=== PATIENT | male | born 1985 | race Caucasian/White ===

== ENCOUNTER 2016-11-24 12:37 | Emergency (ER) | payer OTHER ==
[2016-11-24] MEDS ORDERED: ASPIRIN 81 MG TABLET, CHEWABLE PO ONE (15:00)
[2016-11-24] MEDS ORDERED: PREDNISONE 20 MG TABLET PO ONE (15:01)
[2016-11-24] MEDS ORDERED: IPRATROPIUM/ALBUTEROL 0.5-2.5 MG/3 ML AMPUL NEB ONE (15:01)
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
[2016-11-24 16:17] LABS: ABSOLUTE EOSINOPHILS # (AUTO) 0.4 10^3/uL (0.0-0.6); ABSOLUTE MONOCYTES (AUTO) 0.3 10^3/uL (0.1-1.4); ABSOLUTE NEUT (AUTO) 4.6 10^3/uL (1.7-8.2); BASOPHILS % (AUTO) 0.4 % (0-2); EOSINOPHILS % (AUTO) 6.4 % (0-6); HEMATOCRIT 42.5 % (37.9-51.0); HEMOGLOBIN 14.6 g/dL (13.5-17.0); HGB HCT DIFFERENCE 1.3; LYMPHOCYTES % (AUTO) 16.1 % (13-45); MEAN CORPUSCULAR HEMOGLOBIN 30.2 pg (27.0-33.4); MEAN CORPUSCULAR HGB CONC 34.5 g/dL (32.0-36.0); MEAN CORPUSCULAR VOLUME 88 fl (80-97); RED BLOOD COUNT 4.85 10^6/uL (4.35-5.55); RED CELL DISTRIBUTION WIDTH 12.7 % (11.5-14.0); SEGMENTED NEUTROPHILS % (AUTO) 72.1 % (42-78); WHITE BLOOD COUNT 6.4 10^3/uL (4.0-10.5)
[2016-11-24 16:44] LABS: ALANINE AMINOTRANSFERASE 33 U/L (21-72); ALBUMIN 4.6 g/dL (3.5-5.0); ALKALINE PHOSPHATASE 62 U/L (38-126); ANION GAP 13 (5-19); ASPARTATE AMINO TRANSFERASE 24 U/L (17-59); BILIRUBIN,TOTAL 0.8 mg/dL (0.2-1.3); BLOOD UREA NITROGEN 15 mg/dL (7-20); CALCIUM 9.5 mg/dL (8.4-10.2); CARBON DIOXIDE 21 mmol/L (22-30); CHLORIDE 107 mmol/L (98-107); CREATINE KINASE 184 U/L (55-170); CREATININE RESULT 0.93 mg/dL (0.52-1.25); GLUCOSE 87 mg/dL (75-110); SODIUM 140.8 mmol/L (137-145); TOTAL PROTEIN 7.3 g/dL (6.3-8.2)
[2016-11-24] MEDS ORDERED: ALBUTEROL SULFATE 0.083% NEB 2.5 MG/3 ML AMPUL NEB ONE (16:51)
[2016-11-24 16:56] LABS: CREATINE KINASE MB 0.81 ng/mL (<4.55)
[2016-11-24 16:57] LABS: TROPONIN I < 0.012 ng/mL
[2016-11-24 18:45] VITALS: BP 118/67
--- NOTE | 2016-11-24 23:12 | EKG REPORT ---
SEVERITY:- BORDERLINE ECG - SINUS RHYTHM PROBABLE LEFT ATRIAL ABNORMALITY : Confirmed by: Valeria Millan 24-Nov-2016 23:11:05
== END 2016-11-24 18:45 | disposition home or self-care (01) ==
LOC: ER 12:37
DX: J45.909 Unspecified asthma, uncomplicated (principal); R06.00 Dyspnea, unspecified; R07.89 Other chest pain; R53.1 Weakness; I10 Essential (primary) hypertension; Z87.820 Personal history of traumatic brain injury
CPT/HCPCS: 93005; 94640 ×2; 99285; 36415; 82553; 82550; 85025; 80053; 84484; 71020; 93010; J7512; J7620

== ENCOUNTER → 2016-12-17 | Outpatient (CLI) | payer OTHER ==
[2016-12-17 14:56] LABS: ABSOLUTE EOSINOPHILS # (AUTO) 0.3 10^3/uL (0.0-0.6); ABSOLUTE MONOCYTES (AUTO) 0.3 10^3/uL (0.1-1.4); ABSOLUTE NEUT (AUTO) 2.7 10^3/uL (1.7-8.2); BASOPHILS % (AUTO) 0.6 % (0-2); EOSINOPHILS % (AUTO) 6.6 % (0-6); HEMATOCRIT 43.7 % (37.9-51.0); HEMOGLOBIN 14.6 g/dL (13.5-17.0); HGB HCT DIFFERENCE 0.1; MEAN CORPUSCULAR HEMOGLOBIN 29.5 pg (27.0-33.4); MEAN CORPUSCULAR HGB CONC 33.4 g/dL (32.0-36.0); MEAN CORPUSCULAR VOLUME 89 fl (80-97); MONOCYTES % (AUTO) 5.9 % (3-13); RED BLOOD COUNT 4.94 10^6/uL (4.35-5.55); RED CELL DISTRIBUTION WIDTH 13.1 % (11.5-14.0); SEGMENTED NEUTROPHILS % (AUTO) 62.9 % (42-78); WHITE BLOOD COUNT 4.3 10^3/uL (4.0-10.5)
[2016-12-17 15:08] LABS: APPEARANCE,URINE CLEAR; BILIRUBIN,URINE NEGATIVE (NEGATIVE); GLUCOSE, URINE NEGATIVE (NEGATIVE); KETONES,URINE NEGATIVE (NEGATIVE); LEUKOCYTE ESTERASE,URINE NEGATIVE (NEGATIVE); NITRITE,URINE NEGATIVE (NEGATIVE); PROTEIN,URINE NEGATIVE (NEGATIVE); URINE SPECIFIC GRAVITY 1.012; UROBILINOGEN,URINE NEGATIVE mg/dL (<2.0)
[2016-12-17 15:11] LABS: PROTHROMBIN TIME 14.3 SEC (11.4-15.4)
[2016-12-17 15:12] LABS: PARTIAL THROMBOPLASTIN TIME 29.5 SEC (23.5-35.8)
== END ==
LOC: OD 13:15
PROVIDERS: ATTEND Pain Medicine Interventional Pain Medicine
DX: Z79.1 Long term (current) use of non-steroidal anti-inflammatories (NSAID) (principal)
CPT/HCPCS: 36415; 81001; 85025; 85610; 85730

== ENCOUNTER 2017-02-08 06:03 | Day surgery (SDC) | payer MEDICARE, OTHER ==
[2017-02-02 09:17] LABS: APPEARANCE,URINE CLEAR; BILIRUBIN,URINE NEGATIVE (NEGATIVE); GLUCOSE, URINE NEGATIVE (NEGATIVE); KETONES,URINE NEGATIVE (NEGATIVE); LEUKOCYTE ESTERASE,URINE NEGATIVE (NEGATIVE); NITRITE,URINE NEGATIVE (NEGATIVE); PROTEIN,URINE NEGATIVE (NEGATIVE); URINE SPECIFIC GRAVITY 1.004; UROBILINOGEN,URINE NEGATIVE mg/dL (<2.0)
[2017-02-02 09:19] LABS: PROTHROMBIN TIME 13.9 SEC (11.4-15.4)
[2017-02-02 09:20] LABS: PARTIAL THROMBOPLASTIN TIME 29.5 SEC (23.5-35.8)
[2017-02-02 09:21] LABS: HEMATOCRIT 42.2 % (37.9-51.0); HEMOGLOBIN 14.7 g/dL (13.5-17.0); HGB HCT DIFFERENCE 1.9; MEAN CORPUSCULAR HEMOGLOBIN 30.1 pg (27.0-33.4); MEAN CORPUSCULAR HGB CONC 34.9 g/dL (32.0-36.0); MEAN CORPUSCULAR VOLUME 86 fl (80-97); RED BLOOD COUNT 4.89 10^6/uL (4.35-5.55); RED CELL DISTRIBUTION WIDTH 13.4 % (11.5-14.0); WHITE BLOOD COUNT 3.6 10^3/uL (4.0-10.5)
[2017-02-02 09:54] LABS: ANION GAP 11 (5-19); BLOOD UREA NITROGEN 11 mg/dL (7-20); CALCIUM 10.5 mg/dL (8.4-10.2); CARBON DIOXIDE 28 mmol/L (22-30); CHLORIDE 102 mmol/L (98-107); CREATININE RESULT 1.06 mg/dL (0.52-1.25); GLUCOSE 85 mg/dL (75-110); POTASSIUM 3.7 mmol/L (3.6-5.0); SODIUM 141.4 mmol/L (137-145)
[~2017-02-08 06:03] MED LIST: CEFAZOLIN 1 GM/D5W RTU 1 GM/50 ML RTUPB IV PRN; LACTATED RINGERS 1000 ML IV PRN; LIDOCAINE 0.5% INJ-PF (5 MG/ML) 50 ML SDV SUBCUT PRN
[2017-02-08] MEDS ORDERED: LIDOCAINE 1% INJ-PF (10 MG/ML) 30 ML SDV ONE ×2 (06:46→09:02)
[2017-02-08] MEDS ORDERED: SODIUM BICARBONATE 8.4% INJ 50 MEQ/50 ML DISP.SYRIN ONE (06:46)
[2017-02-08] MEDS ORDERED: BUPIVACAINE HCL 0.25% /EPINEPHRINE INJ/PF 30 ML SDV ONE (06:47)
[2017-02-08] MEDS ORDERED: MIDAZOLAM 2 MG/2 ML INJ ONE (06:48)
[2017-02-08] MEDS ORDERED: FENTANYL CITRATE INJ/PF 100 MCG/2 ML AMPUL ONE ×2 (06:48→10:14)
[2017-02-08] MEDS ORDERED: PROPOFOL INJ 200 MG/20 ML VIAL IV ONE (06:49)
[2017-02-08] MEDS ORDERED: MORPHINE SULFATE 10 MG/ML INJ IV PRN (09:19)
[2017-02-08] MEDS ORDERED: MEPERIDINE HCL/PF INJ 25 MG/1 ML DISP.SYRIN IV PRN (09:19)
[2017-02-08] MEDS ORDERED: DIPHENHYDRAMINE HCL 50 MG/ML VIAL IV PRN (09:19)
[2017-02-08] MEDS ORDERED: PROMETHAZINE HCL INJ 25 MG/1 ML VIAL IV PRN (09:19)
[2017-02-08] MEDS ORDERED: FENTANYL CITRATE INJ/PF 100 MCG/2 ML AMPUL IV PRN ×3 (09:19)
[2017-02-08] MEDS ORDERED: ONDANSETRON HCL INJ/PF 4 MG/2 ML SDV IV PRN (09:19)
[2017-02-08] MEDS ORDERED: CEFAZOLIN INJ 1 GM VIAL ONE (10:07)
[2017-02-08] MEDS ORDERED: OXYCODONE-ACETAMINOPHEN 5-325 MG TABLET PO PRN (10:32)
[2017-02-08] MEDS ORDERED: ALBUTEROL SULFATE HFA (90 MCG/PUFF) 200 PUFF/8.5 GM MDI IH ONE (10:36)
[2017-02-08] MEDS ORDERED: ALBUTEROL SULFATE 0.083% NEB 2.5 MG/3 ML AMPUL NEB ONE (10:37)
--- NOTE | 2017-02-08 10:53 | OPERATIVE REPORT E ---
Operative Report NAME: ROSA MARIA DANIELLE : 1985 AGE: 31Y DATE OF SURGERY: 02/08/2017 ROOM: PREOPERATIVE DIAGNOSIS: Lumbar radiculopathy. POSTOPERATIVE DIAGNOSIS: Lumbar radiculopathy. PROCEDURE PERFORMED: Implantation of spinal cord stimulator system from [employer] with dual octrode leads and Precision Montage MRI compatible system. PRIMARY SURGEON: Jeremías Baptiste M.D. RN IMAGING: Dr. Noé Lan ANESTHESIA: Local with sedation. PREOPERATIVE ANTIBIOTICS: One gram Ancef given prior to incision. INTRAVENOUS FLUIDS: One liter balanced crystalloid solution. ESTIMATED BLOOD LOSS: 5 mL. INDICATIONS: The patient is a 31-year-old male with ongoing history of lumbar radiculopathy. He underwent successful trial of spinal cord stimulation with excellent results and opted to proceed with permanent implantation. Risks and benefits were discussed with the patient at length. Risks include, but are not limited to, bleeding, bruising, infection, injury to nerves, arteries, veins, loss of bowel or bladder function, paralysis, and potentially even . The patient expressed understanding and agreed to proceed. OPERATIVE DETAIL: The patient was accompanied by Anesthesia to the operative suite where he was placed in prone position. All pressure points were protected and padded. Standard A lines and monitors were applied. One gram of Ancef was given perioperatively and sedation was administered. The patient was marked preoperatively over the left buttock as well as the midline from previous trial implant site. The patient was prepped and draped in a sterile fashion using chlorhexidine gluconate solution, Ioban drape and a universal drape. The planned incision site was marked slightly left of midline after confirmation with AP fluoroscopy. The skin was anesthetized prior to incision using 1% buffered lidocaine and deeper tissues infiltrated with 0.25% bupivacaine with 1:100,000 epinephrine. Incision was made with a #15 blade scalpel. Blunt and Bovie dissection was subsequently performed to attain adequate hemostasis and expose the prevertebral fascia. Once this was attained, a 3.5-inch spinal needle was advanced along the planned tract for Tuohy needle insertion to the T12-L1 interspace. The tract was anesthetized with 1% buffered lidocaine. Subsequently a 17-gauge Tuohy provided by the [employer] kit was advanced under intermittent AP and lateral fluoroscopic guidance and access to the epidural space was gained using loss of resistance to normal saline. Once loss of resistance was obtained, the octrode lead was advanced easily into the posterior epidural space and placement confirmed with lateral fluoroscopy. This procedure was performed in the exact same fashion and a left paramedian approach at the L1-L2 interspace. Once both leads were confirmed to be in the posterior epidural space they were advanced to the bottom of the T7 vertebral body. Final confirmation of lead placement was also performed in lateral fluoroscopic angulation. The patient at this point was awakened from anesthesia and testing was performed with the help of the [employer] statement services representative in the room. The patient had adequate stimulation at all painful areas. Subsequently he was allowed to resume sedation. An 0 Mersil[address] was used to place a pursestring suture around the needle and an additional stay suture was placed for anchoring purposes. The Tuohy needle was removed from over the lead under continuous fluoroscopic guidance to ensure no migration of the lead. Subsequently, the anchor provided by the [employer] kit was advanced over the lead. The pursestring suture was tied and then the anchor affixed to the pursestring suture as well as the stay suture. Again, lead placement was confirmed using AP fluoroscopic guidance. This was performed in the exact same fashion on the secondary lead. Once both leads were anchored in place, the site was copiously irrigated with dilute Betadine solution. Attention was then turned to the left buttock where the skin was anesthetized with buffered 1% lidocaine and subsequently 0.25% bupivacaine with 1:100,000 epinephrine. An incision was made using a #15 blade scalpel and blunt and Bovie dissection allowed for creation of a pocket in the left buttock. This was adequately sized for battery and implantable pulse generator placement. Once the pocket was created the deeper tissues were anesthetized with a 3.5-inch spinal needle and 1% lidocaine for tunneling purposes. The leads were tunneled from the midline to the buttock pocket easily. Strain relief loops were placed behind the battery as well as in the midline and affixed with 3-0 Vicryl suture. Copious irrigation was also performed in the buttock pocket at this point. The leads were connected to the implantable pulse generator and impedances were checked using the [employer] statement services representative in the room and found to be appropriate. The battery was placed with appropriate labeling towards the out of the skin. Subsequently closure ensued with interrupted 3-0 Vicryl in both the midline and the buttock pocket. The buttock pocket was further closed of the skin with 4-0 running suture. The midline was closed with Dermabond glue and tape, and the buttock was also closed with Dermabond glue and tape. This was allowed to dry and the incision sites were dressed. The patient tolerated the procedure well and was accompanied to the PACU in stable condition. He will be seen in followup at [facility] tomorrow for wound check. DICTATING PHYSICIAN: JEREMÍAS BAPTISTE M.D. [id number] PHY#: [id number] ID: [id number] JOB#: [id number] ACCT: [id number] cc:JEREMÍAS BAPTISTE M.D. > MTDD
[2017-02-08 12:06] VITALS: BP 119/74
== END 2017-02-08 12:00 | disposition home or self-care (01) ==
LOC: OROUT 06:03
PROVIDERS: ATTEND Pain Medicine Interventional Pain Medicine
PROC: 00HU3MZ Insertion of Neurostimulator Lead into Spinal Canal, Percutaneous Approach (ICD-10-PCS; 2017-02-08)
PROC: 0JH70MZ Insertion of Stimulator Generator into Back Subcutaneous Tissue and Fascia, Open Approach (ICD-10-PCS; principal; 2017-02-08 08:00)
DX: M54.17 Radiculopathy, lumbosacral region (principal); J45.909 Unspecified asthma, uncomplicated; F43.10 Post-traumatic stress disorder, unspecified; Z79.51 Long term (current) use of inhaled steroids; Z79.899 Other long term (current) drug therapy; Z79.1 Long term (current) use of non-steroidal anti-inflammatories (NSAID)
CPT/HCPCS: 63650; 63685; C1778; C1820; 300; 36415; 72080; 80048; 81001; 85027; 85610; 85730; J0690; J2250; J2704; J3010; J3490

== ENCOUNTER 2017-03-13 11:54 | Inpatient (IN) | payer MEDICARE, OTHER ==
[2017-03-13] MEDS ORDERED: IPRATROPIUM/ALBUTEROL 0.5-2.5 MG/3 ML AMPUL NEB ONE ×2 (12:13→13:23)
[2017-03-13] MEDS ORDERED: METHYLPREDNISOLONE INJ 125 MG/2 ML SDV IV ONE (12:14)
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
[2017-03-13 12:39] LABS: ABSOLUTE EOSINOPHILS # (AUTO) 0.8 10^3/uL (0.0-0.6); ABSOLUTE MONOCYTES (AUTO) 0.5 10^3/uL (0.1-1.4); ABSOLUTE NEUT (AUTO) 3.2 10^3/uL (1.7-8.2); BASOPHILS % (AUTO) 0.7 % (0-2); EOSINOPHILS % (AUTO) 11.9 % (0-6); HEMATOCRIT 45.1 % (37.9-51.0); HEMOGLOBIN 15.8 g/dL (13.5-17.0); HGB HCT DIFFERENCE 2.3; LYMPHOCYTES % (AUTO) 30.7 % (13-45); MEAN CORPUSCULAR HEMOGLOBIN 30.2 pg (27.0-33.4); MEAN CORPUSCULAR VOLUME 86 fl (80-97); MONOCYTES % (AUTO) 7.2 % (3-13); RED BLOOD COUNT 5.22 10^6/uL (4.35-5.55); RED CELL DISTRIBUTION WIDTH 13.4 % (11.5-14.0); SEGMENTED NEUTROPHILS % (AUTO) 49.5 % (42-78); WHITE BLOOD COUNT 6.5 10^3/uL (4.0-10.5)
[2017-03-13 12:55] LABS: ALANINE AMINOTRANSFERASE 33 U/L (21-72); ALBUMIN 4.8 g/dL (3.5-5.0); ALKALINE PHOSPHATASE 65 U/L (38-126); ANION GAP 15 (5-19); ASPARTATE AMINO TRANSFERASE 30 U/L (17-59); BILIRUBIN,DIRECT 0.2 mg/dL (0.0-0.4); BILIRUBIN,TOTAL 1.1 mg/dL (0.2-1.3); BLOOD UREA NITROGEN 19 mg/dL (7-20); CALCIUM 10.1 mg/dL (8.4-10.2); CARBON DIOXIDE 23 mmol/L (22-30); CHLORIDE 103 mmol/L (98-107); CREATININE RESULT 1.22 mg/dL (0.52-1.25); GLUCOSE 76 mg/dL (75-110); POTASSIUM 4.7 mmol/L (3.6-5.0); SODIUM 141.4 mmol/L (137-145); TOTAL PROTEIN 7.9 g/dL (6.3-8.2)
[2017-03-13 13:02] LABS: ARTERIAL BLOOD BASE EXCESS 0.3 mmol/L; ARTERIAL BLOOD O2 SATURATION 96.7 % (94-98)
[2017-03-13 13:06] LABS: CREATINE KINASE MB 1.27 ng/mL (<4.55); TROPONIN I < 0.012 ng/mL
[2017-03-13 13:17] LABS: AMORPHOUS SEDIMENT,URINE TRACE /HPF; APPEARANCE,URINE CLEAR; BILIRUBIN,URINE NEGATIVE (NEGATIVE); GLUCOSE, URINE NEGATIVE (NEGATIVE); KETONES,URINE NEGATIVE (NEGATIVE); LEUKOCYTE ESTERASE,URINE NEGATIVE (NEGATIVE); NITRITE,URINE NEGATIVE (NEGATIVE); PROTEIN,URINE NEGATIVE (NEGATIVE); URINE SPECIFIC GRAVITY 1.006; UROBILINOGEN,URINE NEGATIVE mg/dL (<2.0)
[2017-03-13] MEDS ORDERED: MORPHINE SULFATE 10 MG/ML INJ IV ONE (14:21)
[2017-03-13] MEDS ORDERED: IPRATROPIUM/ALBUTEROL 0.5-2.5 MG/3 ML AMPUL NEB PRN ×2 (16:12→19:30)
[2017-03-13] MEDS ORDERED: IPRATROPIUM/ALBUTEROL 0.5-2.5 MG/3 ML AMPUL NEB SCH (16:15)
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
[2017-03-13] MEDS ORDERED: ENOXAPARIN SODIUM INJ 40 MG/0.4 ML DISP.SYRIN SUBCUT ONE (17:00)
[2017-03-13] MEDS: ACETAMINOPHEN 325 MG TABLET PO PRN ×2 (17:04→22:03)
--- NOTE | 2017-03-13 17:08 | EKG REPORT ---
SEVERITY:- ABNORMAL ECG - ATRIAL FLUTTER, A-RATE 340 : Confirmed by: Cyndi Jacob MD 13-Mar-2017 17:07:57
[2017-03-13] MEDS: MORPHINE SULFATE 10 MG/ML INJ IV PRN (18:49)
[2017-03-13] MEDS: IPRATROPIUM/ALBUTEROL 0.5-2.5 MG/3 ML AMPUL NEB SCH (21:05)
[2017-03-13] MEDS: METHYLPREDNISOLONE INJ 40 MG/1 ML SDV IV SCH (22:03)
[2017-03-14] MEDS: IPRATROPIUM/ALBUTEROL 0.5-2.5 MG/3 ML AMPUL NEB SCH ×4 (01:47→19:39)
[2017-03-14] MEDS: MORPHINE SULFATE 10 MG/ML INJ IV PRN ×4 (02:05→22:23)
[2017-03-14] MEDS: ENOXAPARIN SODIUM INJ 40 MG/0.4 ML DISP.SYRIN SUBCUT SCH (08:11)
[2017-03-14] MEDS: ACETAMINOPHEN 325 MG TABLET PO PRN (08:11)
[2017-03-14] MEDS: METHYLPREDNISOLONE INJ 40 MG/1 ML SDV IV SCH ×2 (10:07→21:33)
[2017-03-14] MEDS: FLUOXETINE HCL 20 MG CAPSULE PO SCH (10:07)
[2017-03-14] MEDS: TOPIRAMATE 100 MG TABLET PO SCH (10:07)
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
[2017-03-14] MEDS ORDERED: (PENDING PHARMACY ID) (Tapentadol Hydrochloride [Nucynta] 50 MG) PO SCH (11:45)
[2017-03-14] MEDS ORDERED: MELOXICAM 15 MG TABLET PO ONE (13:00)
[2017-03-14] MEDS ORDERED: METHOCARBAMOL 500 MG TABLET PO ONE (13:00)
[2017-03-14] MEDS: GABAPENTIN 300 MG CAPSULE PO SCH ×2 (14:03→21:33)
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
[2017-03-14] MEDS: METHOCARBAMOL 500 MG TABLET PO SCH (18:32)
[2017-03-15] MEDS: IPRATROPIUM/ALBUTEROL 0.5-2.5 MG/3 ML AMPUL NEB SCH ×4 (01:57→19:38)
[2017-03-15] MEDS: MORPHINE SULFATE 10 MG/ML INJ IV PRN ×2 (04:39→10:37)
[2017-03-15] MEDS: GABAPENTIN 300 MG CAPSULE PO SCH ×3 (05:39→21:37)
--- NOTE | 2017-03-15 07:41 | Physician Advisory Note ---
Physician Advisor ProgressNote .: Pursuant to the plan for [facility], I have reviewed the medical record for this patient. Physician Advisor Statement: Medicare pt requiring a 2nd MN in hospital for continued clinical needs for tx w /close monitoring for response should be made Inpt before the 2nd MN occurs. Pt appropriate for Inpt status. CK
[2017-03-15] MEDS: ACETAMINOPHEN 325 MG TABLET PO PRN ×2 (08:08→20:08)
[2017-03-15] MEDS: ENOXAPARIN SODIUM INJ 40 MG/0.4 ML DISP.SYRIN SUBCUT SCH (08:08)
[2017-03-15] MEDS: MELOXICAM 15 MG TABLET PO SCH (10:24)
[2017-03-15] MEDS: METHYLPREDNISOLONE INJ 40 MG/1 ML SDV IV SCH (10:24)
[2017-03-15] MEDS: TOPIRAMATE 100 MG TABLET PO SCH (10:26)
[2017-03-15] MEDS: METHOCARBAMOL 500 MG TABLET PO SCH ×2 (10:26→17:20)
[2017-03-15] MEDS: FLUOXETINE HCL 20 MG CAPSULE PO SCH (10:26)
--- NOTE | 2017-03-15 12:47 | PDOC PROGRESS REPORT ---
Subjective Progress Note for:: 03/15/17 Subjective:: Patient is still having is having a cough and wheezing He has no hypoxemia and no subjective severe shortness of breath He is alert and awake on the monitor is sinus rhythm without any arrhythmia Physical Exam Vital Signs: Temp Pulse Resp BP Pulse Ox 97.6 F 66 14 121/59 L 100 03/15/17 07:39 03/15/17 07:41 03/15/17 07:41 03/15/17 07:39 03/15/17 07:41 Intake & Output 03/14/17 03/15/17 03/16/17 00:59 00:59 00:59 Intake Total 355 1097 200 Output Total 300 2500 1100 Balance 55 1403 -900 Weight 68.04 kg 68.04 kg 68.04 kg General appearance: PRESENT: no acute distress Head exam: PRESENT: atraumatic, normocephalic Eye exam: PRESENT: conjunctiva pink, EOMI, PERRLA. ABSENT: scleral icterus Neck exam: ABSENT: carotid bruit, JVD, lymphadenopathy, thyromegaly Respiratory exam: PRESENT: wheezes - Scattered but bilaterally. ABSENT: rales, rhonchi Cardiovascular exam: PRESENT: RRR. ABSENT: diastolic murmur, rubs, systolic murmur Pulses: PRESENT: normal dorsalis pedis pul GI/Abdominal exam: PRESENT: normal bowel sounds, soft. ABSENT: distended, guarding, mass, organolmegaly, rebound, tenderness Neurological exam: PRESENT: alert, awake, oriented to person, oriented to place , oriented to time, oriented to situation, CN II-XII grossly intact. ABSENT: motor sensory deficit Psychiatric exam: PRESENT: anxious Results Impressions: Chest X-Ray 03/13/17 12:14 IMPRESSION: NO ACUTE RADIOGRAPHIC FINDING IN THE CHEST. Head CT 03/13/17 12:15 IMPRESSION: NORMAL BRAIN CT WITHOUT CONTRAST. Assessment & Plan - Diagnosis (1) Acute asthma exacerbation Is this a current diagnosis for this admission?: Yes (2) Chronic pain with drug dependence Is this a current diagnosis for this admission?: Yes (3) PTSD (post-traumatic stress disorder) Is this a current diagnosis for this admission?: Yes (4) Syncope Qualifiers: Syncope type: unspecified Qualified Code(s): R55 - Syncope and collapse Is this a current diagnosis for this admission?: Yes - Time Time Spent with patient: We will discontinue opiates at this time Changed IV to by mouth steroids Continue nebs Reevaluate in a.m. for discharge Time Spent with patient: 25-34 minutes
[2017-03-16] MEDS: IPRATROPIUM/ALBUTEROL 0.5-2.5 MG/3 ML AMPUL NEB SCH ×2 (02:11→08:25)
[2017-03-16] MEDS: ACETAMINOPHEN 325 MG TABLET PO PRN (05:28)
[2017-03-16] MEDS: GABAPENTIN 300 MG CAPSULE PO SCH (05:28)
[2017-03-16 08:07] VITALS: BP 117/81
[2017-03-16] MEDS: ENOXAPARIN SODIUM INJ 40 MG/0.4 ML DISP.SYRIN SUBCUT SCH (09:07)
[2017-03-16] MEDS: METHOCARBAMOL 500 MG TABLET PO SCH (09:07)
[2017-03-16] MEDS: TOPIRAMATE 100 MG TABLET PO SCH (09:08)
[2017-03-16] MEDS: MELOXICAM 15 MG TABLET PO SCH (09:08)
[2017-03-16] MEDS: FLUOXETINE HCL 20 MG CAPSULE PO SCH (09:08)
[2017-03-16] MEDS ORDERED: PREDNISONE 20 MG TABLET PO SCH (10:00)
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
== END 2017-03-16 13:38 | disposition home or self-care (01) | DRG 202 ==
LOC: ER 11:54 → EH 15:56 → UNDOADMOB 15:56 → EH 17:10 → 5 18:30 → EH 18:30 → INTOOBSV 03-15 10:22 → OBSVTOIN 03-15 10:22 → EH 03-15 10:22 → 5 03-15 10:22
PROVIDERS: ADMIT Hospitalist; ATTEND Hospitalist
PROC: 3E0F73Z Introduction of Anti-inflammatory into Respiratory Tract, Via Natural or Artificial Opening (ICD-10-PCS; principal; 2017-03-15)
DX: J45.901 Unspecified asthma with (acute) exacerbation (principal); G82.20 Paraplegia, unspecified; I10 Essential (primary) hypertension; F43.10 Post-traumatic stress disorder, unspecified; M54.17 Radiculopathy, lumbosacral region; G89.29 Other chronic pain; G43.909 Migraine, unspecified, not intractable, without status migrainosus; R55 Syncope and collapse; R41.2 Retrograde amnesia; T14.8 Other injury of unspecified body region; W40 Explosion of other materials; H53.149 Visual discomfort, unspecified; Z87.820 Personal history of traumatic brain injury; Z97.8 Presence of other specified devices; Z79.51 Long term (current) use of inhaled steroids; Z82.49 Family history of ischemic heart disease and other diseases of the circulatory system; Z80.3 Family history of malignant neoplasm of breast; Z79.1 Long term (current) use of non-steroidal anti-inflammatories (NSAID); Z79.899 Other long term (current) drug therapy; Z98.890 Other specified postprocedural states
CPT/HCPCS: 36415; 36600; 70450; 71010; 71275; 80053; 81001; 82553; 82803; 84484; 85025; 93005; 93010; 94640; 96372; 96374; 96375; 99285; G0378; J1650; J2270; J2920; J2930; J3490; J7512; J7620

== ENCOUNTER 2017-05-06 10:40 | Emergency (ER) | payer MEDICARE, OTHER ==
[2017-05-06 10:50] VITALS: BP 142/86
[2017-05-06] MEDS ORDERED: LORAZEPAM INJ 2 MG/1 ML VIAL IM ONE (11:10)
[2017-05-06] MEDS ORDERED: ONDANSETRON ODT 4 MG TAB (6 TAB/DSPK) PO PRN (11:10)
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
== END 2017-05-06 11:27 | disposition home or self-care (01) ==
LOC: ER 10:40
DX: F11.23 Opioid dependence with withdrawal (principal); R53.1 Weakness; R11.2 Nausea with vomiting, unspecified; M79.1 Myalgia; I10 Essential (primary) hypertension; Z87.820 Personal history of traumatic brain injury
CPT/HCPCS: 99283; 96372; J2060; A9270

== ENCOUNTER 2017-05-07 09:09 | Emergency (ER) | payer MEDICARE, OTHER ==
--- NOTE | 2017-05-07 09:18 | ER Document Report ---
ED GI/ - General Chief Complaint: Nausea/Vomiting Stated Complaint: VOMITING Time Seen by Provider: 05/07/17 09:18 Mode of Arrival: Ambulatory Information source: Patient Notes: 31 yo stopped his nucenta 200mg per day abruptly on his own 2 weeks ago. Past few days has irritability, insomnia, nausea, vomiting. Came to er last night, tx for withdrawal symptoms with ativan 0.5mg that is not working. Offered to treat pt with some opiate for weaning purposes, has appt. with [facility] on tuesday. He said no on 2 occasions to this during our conversation. Denies suicide or homocidal ideation. Offered to give him resources for detox, and IV/Medications for the nausea. TRAVEL OUTSIDE OF THE [place] IN LAST 30 DAYS: No - Related Data Allergies/Adverse Reactions: theophylline Allergy (Severe, Verified 05/07/17 09:15) n and v Past Medical History - General Information source: Patient - Social History Smoking Status: Current Every Day Smoker Frequency of alcohol use: None Drug Abuse: None Lives with: Spouse/Significant other Family History: CAD, Hypertension Patient has suicidal ideation: No Patient has homicidal ideation: No - Past Medical History Cardiac Medical History: Reports: Hx Hypertension - on meds Pulmonary Medical History: Reports: Hx Asthma - inhalers Neurological Medical History: Reports: Hx Migraine Psychiatric Medical History: Reports: Hx Depression, Hx Post Traumatic Stress Disorder Traumatic Medical History: Reports: Hx Traumatic Brain Injury Past Surgical History: Reports: Hx Appendectomy, Hx Orthopedic Surgery - Tail bone reconstruction, Other - Placement of a nerve stimulator 3 weeks ago. Spinal cord damage. - Immunizations Hx Diphtheria, Pertussis, Tetanus Vaccination: Yes Review of Systems - Review of Systems Constitutional: No symptoms reported EENT: No symptoms reported Cardiovascular: No symptoms reported Respiratory: No symptoms reported Gastrointestinal: See HPI Genitourinary: No symptoms reported Male Genitourinary: No symptoms reported Musculoskeletal: No symptoms reported Skin: No symptoms reported Hematologic/Lymphatic: No symptoms reported Neurological/Psychological: No symptoms reported Physical Exam - Vital signs Vitals: Temp Pulse Resp BP Pulse Ox 99.3 F 84 16 140/76 H 97 05/07/17 09:14 05/07/17 09:14 05/07/17 09:14 05/07/17 09:14 05/07/17 09:14 Interpretation: Normal - General General appearance: Appears well, Alert - HEENT Head: Normocephalic, Atraumatic Eyes: Normal Conjunctiva: Normal Pupils: PERRL Neck: Supple. No: Lymphadenopathy - Respiratory Respiratory status: No respiratory distress Chest status: Nontender Breath sounds: Normal Chest palpation: Normal - Cardiovascular Rhythm: Regular Heart sounds: Normal auscultation Murmur: No - Abdominal Inspection: Normal Distension: No distension Bowel sounds: Normal Tenderness: Nontender. No: Tender Organomegaly: No organomegaly - Back Back: Normal, Nontender - Extremities General upper extremity: Normal inspection, Nontender, Normal color, Normal ROM , Normal temperature General lower extremity: Normal inspection, Nontender, Normal color, Normal ROM , Normal temperature, Normal weight bearing. No: Krupa's sign - Neurological Neuro grossly intact: Yes Cognition: Normal Orientation: AAOx4 [place] Coma Scale Eye Opening: Spontaneous [place] Coma Scale Verbal: Oriented [place] Coma Scale Motor: Obeys Commands Nurys Coma Scale Total: 15 Speech: Normal Motor strength normal: LUE, RUE, LLE, RLE Sensory: Normal - Psychological Associated symptoms: Flat affect, Irritable - Skin Skin Temperature: Warm Skin Moisture: Dry Skin Color: Normal Skin irregularity: negative: Rash Course - Re-evaluation Re-evalutation: 05/07/17 11:01 dr. timmons visited the pt in room 21 and asked me to call [facility] o see if dehydrogenation operator head. 05/07/17 11:14 the reglan and benadryl resolved the nausea, Dr. Winter dehydrogenation operator head for [facility], message devorah ton his cell phone to return my call. Pt was given dilaudid 0.5mg and he feels much better, no skin crawling anymore. Will prescribe some opiate mediation and explain this to dr. winter when he calls me back. 05/07/17 11:21 Dr. Winter recommended 2 mg of hydromorphone twice a day Tuesday, Tuesday and 1 dose for Tuesday morning. - Vital Signs Vital signs: Temp Pulse Resp BP Pulse Ox 98.9 F 88 18 135/81 H 99 05/07/17 11:49 05/07/17 11:49 05/07/17 11:49 05/07/17 11:49 05/07/17 11:49 Discharge - Discharge Clinical Impression: irritability opiate withdrawal Nausea and vomiting Qualifiers: Vomiting type: unspecified Vomiting Intractability: non-intractable Qualified Code(s): R11.2 - Nausea with vomiting, unspecified Condition: Good Disposition: HOME, SELF-CARE Instructions: Intravenous (IV) Fluids ([facility]), Vomiting ([facility]), Reglan ([facility]), Use of Diphenhydramine, Oral Narcotic Medication ([facility]) Additional Instructions: I spoke with dr. winter, and he wants you to take hydromorphone (dilaudid 2mg ) twice a day until they see you tuesday as planned take over the counter benadryl with thte reglan for the nause to er if worse see [facility] on tuesday as planned Please complete the patient satisfaction survey if you get one, and return it.. If you do not receive a survey, then you can go to the [facility] website, [email or web address] and place your comments about your very good care. Thank you very much. It was a pleasure being your medical provider today. Prescriptions: Hydromorphone HCl [Dilaudid 2 mg Tablet] 2 mg PO BID #5 tablet Metoclopramide HCl [Reglan 10 mg Tablet] 1 tab PO QIDP PRN #25 tablet PRN Reason: Referrals: JAMARI GAMBOA MD [ACTIVE STAFF] - 05/09/17
[2017-05-07] MEDS ORDERED: DIPHENHYDRAMINE HCL 25 MG CAPSULE PO ONE (09:19)
[2017-05-07] MEDS ORDERED: METOCLOPRAMIDE HCL 10 MG TABLET PO ONE (09:19)
[2017-05-07] MEDS ORDERED: METOCLOPRAMIDE HCL INJ/PF 10 MG/2 ML SDV IV ONE (09:31)
[2017-05-07] MEDS ORDERED: DIPHENHYDRAMINE HCL 50 MG/ML VIAL IV ONE (09:31)
[2017-05-07] MEDS ORDERED: NORMAL SALINE 1000 ML 2,000 ML IV ONE (09:31)
[2017-05-07] MEDS ORDERED: HYDROMORPHONE HCL INJ/PF 2 MG/ML AMPULE IV ONE (11:04)
[2017-05-07 11:50] VITALS: BP 135/81
== END 2017-05-07 11:50 | disposition home or self-care (01) ==
LOC: ER 09:09
DX: R11.2 Nausea with vomiting, unspecified (principal); F17.200 Nicotine dependence, unspecified, uncomplicated; F11.23 Opioid dependence with withdrawal
CPT/HCPCS: 99284; 96374; 96375; J1200; J2765; J1170; J7030

== ENCOUNTER 2017-07-26 07:25 | Day surgery (SDC) | payer MEDICARE, OTHER ==
[2017-07-21 10:15] LABS: HEMATOCRIT 40.6 % (37.9-51.0); HEMOGLOBIN 14.3 g/dL (13.5-17.0); HGB HCT DIFFERENCE 2.3; MEAN CORPUSCULAR HEMOGLOBIN 30.4 pg (27.0-33.4); MEAN CORPUSCULAR HGB CONC 35.2 g/dL (32.0-36.0); MEAN CORPUSCULAR VOLUME 86 fl (80-97); RED CELL DISTRIBUTION WIDTH 13.4 % (11.5-14.0); WHITE BLOOD COUNT 4.3 10^3/uL (4.0-10.5)
--- NOTE | 2017-07-21 10:28 | RADIOLOGY REPORT (SQ) ---
EXAM DESCRIPTION: CHEST PA/LATERAL COMPLETED DATE/TIME: 07/21/2017 9:42 am REASON FOR STUDY: PRE-OP COMPARISON: 03/13/2017 EXAM PARAMETERS: NUMBER OF VIEWS: two views TECHNIQUE: Digital Frontal and Lateral radiographic views of the chest acquired. RADIATION DOSE: NA LIMITATIONS: none FINDINGS: LUNGS AND PLEURA: No opacities, masses or pneumothorax. No pleural effusion. MEDIASTINUM AND HILAR STRUCTURES: No masses or contour abnormalities. HEART AND VASCULAR STRUCTURES: Heart normal size. No evidence for failure. BONES: No acute findings. HARDWARE: Stimulator electrodes are present in the thoracic spine. OTHER: No other significant finding. IMPRESSION: NO SIGNIFICANT RADIOGRAPHIC FINDING IN THE CHEST. TECHNICAL DOCUMENTATION: JOB ID: [id number] [employer]- All Rights Reserved
[2017-07-21 10:30] LABS: APPEARANCE,URINE CLEAR; BILIRUBIN,URINE NEGATIVE (NEGATIVE); GLUCOSE, URINE NEGATIVE (NEGATIVE); KETONES,URINE NEGATIVE (NEGATIVE); LEUKOCYTE ESTERASE,URINE NEGATIVE (NEGATIVE); NITRITE,URINE NEGATIVE (NEGATIVE); PROTEIN,URINE NEGATIVE (NEGATIVE); URINE SPECIFIC GRAVITY 1.006; UROBILINOGEN,URINE NEGATIVE mg/dL (<2.0)
[2017-07-21 11:52] LABS: PARTIAL THROMBOPLASTIN TIME 29.7 SEC (23.5-35.8); PROTHROMBIN TIME 13.7 SEC (11.4-15.4)
--- NOTE | 2017-07-21 15:40 | EKG REPORT ---
SEVERITY:- NORMAL ECG - SINUS RHYTHM : Confirmed by: Valeria Millan 21-Jul-2017 15:39:17
[2017-07-26] MEDS ORDERED: LIDOCAINE 1% INJ-PF (10 MG/ML) 30 ML SDV ONE (08:09)
[2017-07-26] MEDS ORDERED: BUPIVACAINE HCL 0.5%-EPI 1:200000 INJ/PF 30 ML VIAL ONE (08:10)
[2017-07-26] MEDS ORDERED: FENTANYL CITRATE INJ/PF 100 MCG/2 ML AMPUL ONE ×2 (09:16→10:52)
[2017-07-26] MEDS ORDERED: MIDAZOLAM 2 MG/2 ML INJ ONE ×2 (09:16)
[2017-07-26] MEDS ORDERED: PROPOFOL INJ 200 MG/20 ML VIAL IV ONE (09:16)
[2017-07-26] MEDS ORDERED: FENTANYL CITRATE INJ/PF 100 MCG/2 ML AMPUL IV PRN ×3 (09:52)
[2017-07-26] MEDS ORDERED: DIPHENHYDRAMINE HCL 50 MG/ML VIAL IV PRN (09:52)
[2017-07-26] MEDS ORDERED: CEFAZOLIN INJ 1 GM VIAL ONE (10:48)
[2017-07-26] MEDS ORDERED: OXYCODONE-ACETAMINOPHEN 5-325 MG TABLET PO PRN (11:18)
--- NOTE | 2017-07-26 11:22 | OPERATIVE REPORT E ---
Operative Report NAME: ROSA MARIA DANIELLE : 1985 AGE: 32Y DATE OF SURGERY: 07/26/2017 ROOM: PREOPERATIVE DIAGNOSIS: SCS implantable pulse generator pocket pain. POSTOPERATIVE DIAGNOSIS: SCS implantable pulse generator pocket pain. PROCEDURE PERFORMED: Revision of implantable pulse generator battery pocket with move of battery to a more favorable position. PRIMARY SURGEON: JEREMÍAS BASILIO M.D. BLACK TOP ROLLER: Dr. Nils Winter ANESTHESIA: MAC with sedation. INTRAVENOUS FLUIDS: 700 mL of balanced crystalloid solution given. ANTIBIOTICS: 1 g Ancef perioperatively. ESTIMATED BLOOD LOSS: 5 mL SPECIMENS REMOVED: None. OPERATIVE INDICATIONS: The patient is a 32-year-old male who underwent implantation of permanent spinal cord stimulator and implantable pulse generator earlier this year. The patient has done very well with his stimulator and is very happy with current stimulation, however, his implantable pulse generator is in an unfavorable location and is quite irritated on his belt line. The patient requests revision of implantable pulse generator site to a more inferior position. All risks and benefits were discussed with the patient in detail including but not limited to bleeding, bruising, infection, injury to nerves, arteries, veins, the need for further revision of leads as well as midline site, and failure to ameliorate pocket pain. The patient expressed understanding and agreed to proceed. OPERATIVE DETAIL: The patient was accompanied with anesthesia staff to the operative suite where he was placed in prone position. All pressure points were checked and padded. Standard ASA lines and monitors were applied. A timeout protocol was performed as per [facility] standards. The patient was prepped and draped in sterile fashion using chlorhexidine gluconate solution, Ioban and universal drape. The previous implantable pulse generator site was marked and anesthetized with 1% lidocaine with 1:100,000 epinephrine. Deeper tissues were subsequently infiltrated with 0.25% bupivacaine. An 11 blade scalpel was utilized to make incision along previous scar. The battery was easily delivered from the pocket. The pocket was extended in a *------* position further down the buttock by interruption of previous pocket site with blunt dissection. The top portion of the pocket was closed with 3-0 pop off Vicryl sutures. The implantable pulse generator was then reinserted after copious irrigation with *------* x3 and the implantable pulse generator was affixed to the innermost portion of the pockets using 0 Mersilene stay suture. In this position, it was determined that the battery was in good position. Notably the battery was in front of the coiled leads with strain relief loops behind the battery and the lettering of course facing outward. Closure then ensued with interrupted 3-0 Vicryl sutures in vertical mattress fashion. The skin was further closed with Dermabond, tape, and glue. The patient was accompanied to anesthesia unit in stable condition. He will be sent home and will have followup at [facility] within the next 24 hours. DICTATING PHYSICIAN: JEREMÍAS BASILIO M.D. [id number] PHY#: [id number] ID: [id number] JOB#: [id number] ACCT: [id number] cc:JEREMÍAS BASILIO M.D. >
[2017-07-26 13:30] VITALS: BP 111/78
== END 2017-07-26 12:30 | disposition home or self-care (01) ==
LOC: OROUT 07:25
PROVIDERS: ATTEND Pain Medicine Interventional Pain Medicine
PROC: 0JWT0MZ Revision of Stimulator Generator in Trunk Subcutaneous Tissue and Fascia, Open Approach (ICD-10-PCS; principal; 2017-07-26 10:00)
DX: G89.4 Chronic pain syndrome (principal); J45.909 Unspecified asthma, uncomplicated; M54.16 Radiculopathy, lumbar region; M47.816 Spondylosis without myelopathy or radiculopathy, lumbar region; M43.06 Spondylolysis, lumbar region; M79.1 Myalgia; G25.81 Restless legs syndrome; M54.5 Low back pain; F45.42 Pain disorder with related psychological factors; M43.07 Spondylolysis, lumbosacral region; M53.3 Sacrococcygeal disorders, not elsewhere classified; K59.00 Constipation, unspecified; F41.9 Anxiety disorder, unspecified; Z79.899 Other long term (current) drug therapy; Z79.1 Long term (current) use of non-steroidal anti-inflammatories (NSAID); Z79.891 Long term (current) use of opiate analgesic
CPT/HCPCS: 93005; 36415; 85027; 85610; 85730; 81001; 71020; 93010; 63688; J2250; J3490 ×2; J0690 ×2; J3010; A9270; J2704; 300

== ENCOUNTER 2017-08-25 20:34 | Emergency (ER) | payer MEDICARE, OTHER ==
--- NOTE | 2017-08-25 22:48 | ER Document Report ---
ED Oral Problem - General Chief Complaint: Dental Injury Stated Complaint: TOOTH PULLED,BLEEDING Time Seen by Provider: 08/25/17 22:33 Mode of Arrival: Ambulatory Information source: Patient TRAVEL OUTSIDE OF THE [place] IN LAST 30 DAYS: No - HPI Patient complains to provider of: Other - Bleeding from tooth socket Notes: Patient is a 32-year-old male presenting to the emergency room today complaining of bleeding from a right maxillary molar that started earlier this evening, he had the tooth pulled earlier in the day and was doing okay, but thinks that a stitch may have come out of the area causing him to have increased bleeding - Related Data Allergies/Adverse Reactions: theophylline Allergy (Severe, Verified 07/21/17 09:25) n and v Past Medical History - General Information source: Patient - Social History Smoking Status: Never Smoker Frequency of alcohol use: None Drug Abuse: None Family History: CAD, Hypertension Patient has suicidal ideation: No Patient has homicidal ideation: No - Past Medical History Cardiac Medical History: Denies: Hx Congestive Heart Failure, Hx Coronary Artery Disease, Hx Heart Attack, Hx Hypertension Pulmonary Medical History: Reports: Hx Asthma Denies: Hx Bronchitis, Hx COPD, Hx Pneumonia, Hx Tuberculosis Neurological Medical History: Reports: Hx Migraine. Denies: Hx Cerebrovascular Accident, Hx Seizures Renal/ Medical History: Denies: Hx Benign Prostatic Hyperplasia, Hx End Stage Renal Disease, Hx Kidney Stones, Hx Peritoneal Dialysis GI Medical History: Denies: Hx Cirrhosis, Hx Gastroesophageal Reflux Disease, Hx Ulcer Musculoskeltal Medical History: Reports Hx Arthritis, Denies Hx Multiple Sclerosis Psychiatric Medical History: Reports: Hx Depression, Hx Post Traumatic Stress Disorder Denies: Hx Bipolar Disorder, Hx Schizophrenia Traumatic Medical History: Reports: Hx Traumatic Brain Injury Past Surgical History: Reports: Hx Appendectomy, Hx Orthopedic Surgery - Tail bone reconstruction, Other - Placement of a nerve stimulator 3 weeks ago. Spinal cord damage. - Immunizations Hx Diphtheria, Pertussis, Tetanus Vaccination: Yes Review of Systems - Review of Systems Constitutional: No symptoms reported EENT: See HPI Cardiovascular: No symptoms reported Respiratory: No symptoms reported Gastrointestinal: No symptoms reported Genitourinary: No symptoms reported Male Genitourinary: No symptoms reported Musculoskeletal: No symptoms reported Skin: No symptoms reported Hematologic/Lymphatic: No symptoms reported Neurological/Psychological: No symptoms reported -: Yes All other systems reviewed and negative Physical Exam - Vital signs Vitals: Temp Pulse Resp BP Pulse Ox 97.8 F 78 18 147/81 H 97 08/25/17 20:52 08/25/17 20:52 08/25/17 20:52 08/25/17 20:52 08/25/17 20:52 - Notes Notes: - General General appearance: Appears well, Alert In distress: None - HEENT Head: Normocephalic, Atraumatic Eyes: Normal Conjunctiva: Normal Extraocular movements intact: Yes Eyelashes: Normal Pupils: PERRL - Respiratory Respiratory status: No respiratory distress - Cardiovascular Rhythm: Regular - Abdominal Inspection: Normal - Back Back: Normal - Extremities General upper extremity: Normal inspection General lower extremity: Normal inspection - Neurological Neuro grossly intact: Yes Orientation: AAOx4 [place] Coma Scale Eye Opening: Spontaneous [place] Coma Scale Verbal: Oriented [place] Coma Scale Motor: Obeys Commands [place] Coma Scale Total: 15 - Psychological Associated symptoms: Normal affect, Normal mood - Skin Skin Temperature: Warm Skin Moisture: Dry Skin Color: Normal - HEENT Teeth diagram: 1 - Recent dental extraction with active bleeding Course - Re-evaluation Re-evalutation: 08/25/17 23:34 Quick light dressing was placed in the socket, which seemed to subside the bleeding, patient was advised to leave it there for 24 hours, follow-up with his dentist or return if symptoms worsen, patient acknowledges understanding and agreement with this plan - Vital Signs Vital signs: Temp Pulse Resp BP Pulse Ox 97.8 F 78 18 147/81 H 97 08/25/17 20:52 08/25/17 20:52 08/25/17 20:52 08/25/17 20:52 08/25/17 20:52 Discharge - Discharge Clinical Impression: Surgical wound hemorrhage after dental procedure Condition: Stable Disposition: HOME, SELF-CARE Instructions: Toothache ([facility]) Additional Instructions: Follow up with your primary care provider in one to 2 days. Return to the emergency room immediately if symptoms worsen or any additional concerns.
[2017-08-25 23:48] VITALS: BP 124/76
== END 2017-08-25 23:45 | disposition home or self-care (01) ==
LOC: ER 20:34
DX: M96.830 Postprocedural hemorrhage of a musculoskeletal structure following a musculoskeletal system procedure (principal); Z98.818 Other dental procedure status
CPT/HCPCS: 99282